=== PATIENT | female | born 1990 | race Caucasian/White ===

== ENCOUNTER 2021-02-19 17:01 | Emergency (ER) | payer OTHER ==
[2021-02-19 18:10] LABS: HEMOGLOBIN 12.9 gm/dl (12.3-15.3); RED BLOOD COUNT 4.72 M/UL (4.00-5.10); WHITE BLOOD COUNT 10.6 K/UL (4.5-11.0)
[2021-02-19 18:39] LABS: BUN/CREATININE RATIO 18 (0-10)
[2021-02-19] MEDS ORDERED: NITROSTAT0.4 MG SL (19:08)
[2021-02-19] MEDS ORDERED: ASPIRIN CHEWABL81 MG PO (19:08)
== END 2021-02-19 21:27 | disposition home or self-care (01) ==
LOC: ER1 17:01
PROVIDERS: Emergency Medicine
DX: R07.89 Other chest pain (principal); K21.9 Gastro-esophageal reflux disease without esophagitis; Z91.040 Latex allergy status
CPT/HCPCS: 71045; 80053; 81001; 82550; 82553; 83874; 84439; 84443; 84484; 84703; 85025; 85379; 93005; 99285

== ENCOUNTER 2021-04-14 20:27 | Emergency (ER) | payer OTHER ==
[~2021-04-14 20:27] MED LIST: ASPIRIN CHEWABL81 MG PO; NITROSTAT0.4 MG SL
[2021-04-14 22:41] LABS: RED BLOOD COUNT 4.72 M/UL (4.00-5.10); WHITE BLOOD COUNT 14.5 K/UL (4.5-11.0)
[2021-04-14 23:05] LABS: BUN/CREATININE RATIO 17 (0-10)
== END 2021-04-15 02:45 | disposition home or self-care (01) ==
LOC: ER1 20:27
PROVIDERS: Physician Assistant
DX: R55 Syncope and collapse (principal); R07.9 Chest pain, unspecified; R20.2 Paresthesia of skin; Z91.040 Latex allergy status; Z90.89 Acquired absence of other organs
CPT/HCPCS: 70450; 71045; 80053; 80307; 81001; 82550; 82553; 83874; 83880; 84484; 84703; 85025; 85379; 85610; 85730; 87086; 93005; 99285

== ENCOUNTER 2021-06-30 21:42 | Emergency (ER) | payer OTHER | END 2021-06-30 22:53 | disposition left against medical advice (07) | LOC: ER1 21:42 | DX: Z53.21 Procedure and treatment not carried out due to patient leaving prior to being seen by health care provider (principal) ==

== ENCOUNTER 2022-04-19 16:23 | Emergency (ER) | payer OTHER ==
[2022-04-19 19:16] LABS: HEMOGLOBIN 12.8 gm/dl (12.3-15.3); RED BLOOD COUNT 4.65 M/UL (4.00-5.10); WHITE BLOOD COUNT 11.3 K/UL (4.5-11.0)
[2022-04-19 19:20] LABS: BUN/CREATININE RATIO 11 (0-10)
== END 2022-04-19 22:47 | disposition home or self-care (01) ==
LOC: ER1 16:23
PROVIDERS: Physician Assistant
DX: R10.9 Unspecified abdominal pain (principal); Z88.8 Allergy status to other drugs, medicaments and biological substances
CPT/HCPCS: 80053; 81001; 83690; 84703; 85025; 87086; 96374; 99284; J1885; Q9967